=== PATIENT | female | born 1985 | race Caucasian/White ===

== ENCOUNTER 2017-03-21 08:22 | Emergency (ER) | payer OTHER ==
[2017-03-21 09:45] VITALS: BP 116/78
--- NOTE | 2017-03-21 10:31 | UC ---
Complaint Female HPI - HPI Summary HPI Summary: 31 y/o female presents to the urgent care c/o pelvic pain since yesterday. She thinks her IUD moved since her strings are shorter. Her Pelvic Pain is now 2/10 and she took 2 tabs of Ibufrofen 2 hrs ago. LMP 22 months ago since she had her baby and after that she has been breast feeding. Pt denies vaginal discharge, vaginal bleeding, fever, SOB, chest pain, N/V/D. - History Of Current Complaint Chief Complaint: UCGU Stated Complaint: PERSONAL Time Seen by Provider: 03/21/17 10:16 Hx Obtained From: Patient Hx Last Menstrual Period: 22 mos. breast feeding on IUD ?: No Onset/Duration: Sudden Onset, Lasting Hours, Still Present Timing: Intermittent Severity Initially: Moderate Severity Currently: Mild Pain Intensity: 2 Pain Scale Used: 0-10 Numeric Character: Cramping Aggravating Factor(s): Nothing Associated Signs And Symptoms: Positive: Negative. Negative: Fever, Back Pain, Vaginal Discharge, Nausea - Risk Factors Ectopic Risk Factor: IUD Use Ovarian Torsion Risk Factor: Negative - Allergies/Home Medications Allergies/Adverse Reactions: Allergies Allergy/AdvReac Type Severity Reaction Status Date / Time adhesives Allergy Rash Uncoded 03/21/17 09:46 seasonal Allergy Eyes Uncoded 03/21/17 09:46 Itchy/Swollen/Red/Watery Home Medications: Home Medications Cetirizine* [ZyrTEC 10 MG TAB*] 10 mg PO DAILY 03/21/17 [History Confirmed 03/21] PMH/Surg Hx/FS Hx/Imm Hx Previously Healthy: Yes Endocrine History: Other - Gestational DM Other Endocrine History: Gestational diabetes - Surgical History Surgical History: Yes Surgery Procedure, Year, and Place: C-sect 01/24/16 - Family History Known Family History: Positive: Hypertension, Other Family History: Lung Cancer, Breast cancer. - Social History Alcohol Use: None Substance Use Type: None Smoking Status (MU): Never Smoked Tobacco Review of Systems Constitutional: Negative Skin: Negative Eyes: Negative ENT: Negative Respiratory: Negative Cardiovascular: Negative Gastrointestinal: Negative Genitourinary: Other - mild Pelvic Pain with concern on IUD placement Motor: Negative Neurovascular: Negative Musculoskeletal: Negative Neurological: Negative Psychological: Negative All Other Systems Reviewed And Are Negative: Yes Physical Exam Triage Information Reviewed: Yes Vital Signs: Initial Vital Signs Temp 99.2 F 03/21/17 09:38 Pulse 82 03/21/17 09:38 Resp 18 03/21/17 09:38 BP 116/78 03/21/17 09:38 - Additional Comments PHYSICAL EXAMINATION: General: Normotensive, in no acute distress. Head: Normocephalic, no lesions. Eyes: PERRLA, EOM's full, conjunctivae clear, fundi grossly normal. Ears: EAC's clear, TM's normal. Nose: Mucosa normal, no obstruction. Throat: Clear, no exudates, no lesions. Neck: Supple, no masses, no thyromegaly, no bruits. Chest: Lungs clear, no rales, no rhonchi, no wheezes. Heart: RR, no murmurs, no rubs, no gallops. Abdomen: Soft, no tenderness, no masses, BS normal. : Normal, no lesions, no discharge, no hernias noted. Pelvic: I was assiste by Nurse Green. External genitalia within normal limits. There is no lesions there is no masses noted. Speculum exam: The vaginal cortés are within normal limits w/ white yellowish vaginal discharge, with fishy odor, no the lesions or rashes. The cervix is closed with mild erythema and string from the IUD is in placed. There is no CMT's, and no adnexal masses. Sample sent to the lab for G/C and affirm Complaint Female Dx - Course Course Of Treatment: PE abnormal findings:Pelvic: I was assiste by Nurse Green. External genitalia within normal limits. There is no lesions there is no masses noted. Speculum exam: The vaginal cortés are within normal limits w/ white yellowish vaginal discharge, with fishy odor,no the lesions or rashes. The cervix is closed with mild erythema and string from the IUD is in placed. There is no CMT's, and no adnexal masses. Sample sent to the lab for G/C and affirm. Pt RX Metronidazole vaginal applicator to Tx BV and advised if anything else returns abnormal in the labs, she will be notified for further treatment. Advised to f/u with TELEMARKETING MANAGER for a PAP. Pt understood and agreed. - Differential Dx/Diagnosis Differential Diagnosis/HQI/PQRI: Cervicitis, Pelvic Inflammatory Disease, , Sexually Transmitted Disease, Urinary Tract Infection Provider Diagnoses: Bacterial Vaginosis, Pelvic pain, Discharge - Discharge Plan Condition: Stable Disposition: HOME Prescriptions: Ibuprofen TAB* [Motrin TAB* 600 MG] 600 mg PO Q6H PRN #20 tab PRN Reason: Pain metroNIDAZOLE VAGINAL 0.75%* 1 applic VAGINAL BEDTIME #5 tube Patient Education Materials: Bacterial Vaginosis (ED), Pelvic Pain in Women (ED ) Referrals: No Primary Care Phys,NOPCP [Primary Care Provider] - Additional Instructions: Please apply medication as instructed. Specimen sent to labs if anything returns abnormal you will receive a call from us for further treatment. Please f/u with your TELEMARKETING MANAGER for a PAP. Please continue taking Ibuprofen to alleviate symptoms.
== END 2017-03-21 11:07 | disposition home or self-care (01) ==
LOC: EDBD → MERGE 08:22 → UCCORT 08:22
DX: R10.2 Pelvic and perineal pain (principal); N76.0 Acute vaginitis
CPT/HCPCS: 81003; 84702; 87480; 87491; 87510; 87591; 87661; 99202; G0463

== ENCOUNTER 2018-12-23 14:52 | Emergency (ER) | payer BC, OTHER ==
[2018-12-23 16:07] VITALS: BP 107/68
--- NOTE | 2018-12-23 16:23 | UC ---
Respiratory Complaint HPI - HPI Summary HPI Summary: 33 y/o female presents to the urgent care c/o sinus congestion, productive cough w/ green phleg for the past week. Pt states nasal congestion w/ sinus pressure and pain, Yellowish PND. Cough is worse at night time and last night she felt mild SOB, body aches and chills since her sinuses are all congested. DOVE is 6/10. Pt has taken OTC medications to alleviate symptoms w/o any improvement. Pt denies fever, dizziness, wheezing, SOB today, chest pain, abdominal pain, N/V/d. - History of Current Complaint Chief Complaint: UCRespiratory Stated Complaint: CONGESTED Time Seen by Provider: 12/23/18 16:04 Hx Obtained From: Patient Hx Last Menstrual Period: Mirena IUD ?: No Onset/Duration: Gradual Onset, Lasting Weeks - 1 week Timing: Constant Severity Initially: Mild Severity Currently: Moderate Pain Intensity: 6 Character: Cough: Productive, Sputum Description: - green Aggravating Factors: Recumbent Position Alleviating Factors: OTC Meds Associated Signs And Symptoms: Positive: Chills, URI, Nasal Congestion, Sinus Discomfort. Negative: Fever, Wheezing - Risk Factors Pulmonary Embolism Risk Factors: Negative Cardiac Risk Factors: Negative Pseudomonas Risk Factors: Negative Tuberculosis Risk Factors: Negative - Allergies/Home Medications Allergies/Adverse Reactions: Allergies Allergy/AdvReac Type Severity Reaction Status Date / Time adhesives Allergy Rash Uncoded 12/23/18 16:03 seasonal Allergy Eyes Uncoded 12/23/18 16:03 Itchy/Swollen/Red/Watery Home Medications: Home Medications Levonorgestrel (Iud) [Mirena IUD] 20 mcg IU DAILY 12/23/18 [History Confirmed ] PMH/Surg Hx/FS Hx/Imm Hx Previously Healthy: Yes Endocrine History: Diabetes - Gestational DM - Surgical History Surgical History: Yes Surgery Procedure, Year, and Place: C-sect 01/24/16 - Family History Known Family History: Positive: Hypertension, Other Family History: Lung Cancer, Breast cancer. - Social History Occupation: Employed Full-time Lives: With Family Alcohol Use: Occasionally Substance Use Type: None Smoking Status (MU): Never Smoked Tobacco Review of Systems All Other Systems Reviewed And Are Negative: Yes Constitutional: Positive: Negative Skin: Positive: Negative Eyes: Positive: Negative ENT: Positive: Nasal Discharge - yellowish, Sinus Congestion, Sinus Pain/ Tenderness, Other - PND Respiratory: Positive: Cough - w/ green phlegm Cardiovascular: Positive: Negative Gastrointestinal: Positive: Negative Genitourinary: Positive: Negative Motor: Positive: Negative Neurovascular: Positive: Negative Musculoskeletal: Positive: Negative Neurological: Positive: Headache Psychological: Positive: Negative Is Patient Immunocompromised?: No Physical Exam - Summary Physical Exam Summary: Vitals: reviewed General: Well developed, well-nourished male patient with NAD. Head and face: Normocephalic and atraumatic, Positive tenderness over the frontal and maxillary sinuses.. Eyes: PERRLA, EOMI x 2. Normal conjunctiva. No eye discharge. ENT: Ears and TM with normal limits. Nose: edematous and erythematous nasal mucosa with with yellowish discharge and erythematous mucosa. Pharynx with erythema, no exudate. Yellowish PND Neck: Supple, no JVD, no carotid bruits and no lymphadenopathy. Lungs: clear, no rales, no rhonchi, no wheezes. CVS: RRR, S1 and S2 present no murmurs or gallops appreciated. Abdomen: soft nontender with positive bowel sounds. Extremities: no edema noted. Neuro: WNL. Skin: warm and dry Triage Information Reviewed: Yes Vital Signs: Initial Vital Signs Temp 98.7 F 12/23/18 16:01 Pulse 92 12/23/18 16:01 Resp 18 12/23/18 16:01 BP 107/68 12/23/18 16:01 Pulse Ox 100 12/23/18 16:01 Respiratory Course/Dx - Course Course Of Treatment: 33 y/o female presents to the urgent care c/o sinus congestion, productive cough w/ green phleg for the past week. Pt states nasal congestion w/ sinus pressure and pain, Yellowish PND. Cough is worse at night time and last night she felt mild SOB, body aches and chills since her sinuses are all congested. DOVE is 6/10. Pt has taken OTC medications to alleviate symptoms w/o any improvement. Pt denies fever, dizziness, wheezing, SOB today, chest pain, abdominal pain, N/V/d.Hx obtained. Pt w/ acute bacterial sinusitis on examination. Pt with 1 weeks of symptoms getting worse. Pt Rx Amoxicillin PO and flonase nasal spray. Discharge instructions explained to Pt. Advised to Return to the clinic or PCP if symptoms do not improve.Pt understood and agreed with plan of care. - Differential Dx/Diagnosis Differential Diagnosis/HQI/PQRI: Asthma, Bronchitis, Influenza, Lower Resp Infection, Sinusitis Provider Diagnosis: Acute bacterial sinusitis Discharge - Sign-Out/Discharge Documenting (check all that apply): Patient Departure - d/c home All imaging exams completed and their final reports reviewed: No Studies - Discharge Plan Condition: Stable Disposition: HOME Prescriptions: Amoxicillin/Clavulanate TAB* [Augmentin TAB 875*] 875 mg PO BID #20 tab Fluticasone NASAL SPRAY 50MCG* [Flonase NASAL SPRAY 50MCG*] 2 spray BOTH NARES DAILY #1 btl Patient Education Materials: Sinusitis (ED) Referrals: Mauro Simon MD [Primary Care Provider] - 3 Days Additional Instructions: 1- Please increase fluid intake and rest. take full course of antibiotic to avoid resistance 2-Use Flonase as directed to help drain fluid. Also buy saline drops to clear sinuses 3-Please continue taking Zyrtec PO to alleviates sinus congestion 4-Return to the clinic or PCP in 3 days if symptoms do not improve for further management and treatment - Billing Disposition and Condition Condition: STABLE Disposition: Home
== END 2018-12-23 16:44 | disposition home or self-care (01) ==
LOC: UCEAST 14:52
DX: J01.80 Other acute sinusitis (principal); B96.89 Other specified bacterial agents as the cause of diseases classified elsewhere; Z91.09 Other allergy status, other than to drugs and biological substances
CPT/HCPCS: 99212; G0463

== ENCOUNTER 2019-08-17 11:18 | Emergency (ER) | payer BC ==
[2019-08-17 15:17] VITALS: BP 134/69
--- NOTE | 2019-08-17 15:39 | UC ---
Throat Pain/Nasal Josue HPI - HPI Summary HPI Summary: 33-year-old woman comes in with a chief complaint of sinusitis symptoms for 10 or more days. Been having a runny nose turned yellow and now it's turned dark. She has sinus pressure postnasal drip chest congestion that's primarily in her upper chest. The chest congestion makes her cough. Now she has a low- grade fever. Initially she felt like she is getting better but less complacent getting worse. - History of Current Complaint Chief Complaint: UCRespiratory Stated Complaint: RESP ISSUE COUGH Time Seen by Provider: 08/17/19 15:29 Hx Last Menstrual Period: Mirena IUD Pain Intensity: 2 - Allergies/Home Medications Allergies/Adverse Reactions: Allergies Allergy/AdvReac Type Severity Reaction Status Date / Time adhesives Allergy Rash Uncoded 08/17/19 15:17 seasonal Allergy Eyes Uncoded 08/17/19 15:17 Itchy/Swollen/Red/Watery PMH/Surg Hx/FS Hx/Imm Hx Previously Healthy: Yes - Surgical History Surgical History: Yes Surgery Procedure, Year, and Place: C-sect 01/24/16 - Family History Known Family History: Positive: Hypertension, Other Family History: Lung Cancer, Breast cancer. - Social History Alcohol Use: Weekly Substance Use Type: None Smoking Status (MU): Never Smoked Tobacco Review of Systems All Other Systems Reviewed And Are Negative: Yes Constitutional: Positive: Fever, Other - SEE HPI Skin: Positive: Negative Eyes: Positive: Negative ENT: Positive: Sore Throat, Nasal Discharge, Sinus Congestion, Sinus Pain/ Tenderness Respiratory: Positive: Cough Cardiovascular: Positive: Negative Gastrointestinal: Positive: Negative Motor: Positive: Negative Neurovascular: Positive: Negative Musculoskeletal: Positive: Negative Neurological: Positive: Negative Psychological: Positive: Negative Is Patient Immunocompromised?: No Physical Exam Triage Information Reviewed: Yes Appearance: No Pain Distress, Well-Nourished, Ill-Appearing - MILD Vital Signs: Initial Vital Signs Temp 100.0 F 08/17/19 15:12 Pulse 94 08/17/19 15:12 Resp 18 08/17/19 15:12 BP 134/69 08/17/19 15:12 Pulse Ox 99 08/17/19 15:12 Vital Signs Reviewed: Yes Eye Exam: Normal Eyes: Positive: Conjunctiva Clear ENT: Positive: Pharyngeal erythema, Nasal congestion, Nasal drainage, TMs normal Neck: Positive: Supple Respiratory: Positive: Lungs clear, Normal breath sounds, No respiratory distress Cardiovascular: Positive: RRR Musculoskeletal: Positive: Strength Intact, ROM Intact Neurological: Positive: Alert, Muscle Tone Normal Psychological: Positive: Age Appropriate Behavior Skin Exam: Normal Throat Pain/Nasal Course/Dx - Differential Dx/Diagnosis Provider Diagnosis: Sinusitis Discharge ED - Sign-Out/Discharge Documenting (check all that apply): Patient Departure All imaging exams completed and their final reports reviewed: No Studies - Discharge Plan Condition: Stable Disposition: HOME Prescriptions: Amoxicillin/Clavulanate TAB* [Augmentin TAB 875*] 875 mg PO BID #20 tab Fluticasone NASAL SPRAY 50MCG* [Flonase NASAL SPRAY 50MCG*] 2 spray BOTH NARES DAILY #1 btl Patient Education Materials: Sinusitis (ED) Referrals: Mauro Simon MD [Primary Care Provider] - Additional Instructions: FOLLOW UP WITH YOUR DOCTOR IF NOT COMPLETELY IMPROVED. GET REEVALUATED SOONER IF NOT IMPROVED OR WORSE OR ANY QUESTIONS OR CONCERNS. - Billing Disposition and Condition Condition: STABLE Disposition: Home
== END 2019-08-17 15:45 | disposition home or self-care (01) ==
LOC: UCEAST 11:18
DX: J32.9 Chronic sinusitis, unspecified (principal); Z91.09 Other allergy status, other than to drugs and biological substances
CPT/HCPCS: 99212; G0463